=== PATIENT | female | born 1975 | race Caucasian/White ===

== ENCOUNTER → 2020-04-06 | Outpatient (CLI) | payer BC ==
--- NOTE | 2020-04-06 12:39 | Diagnostic Imaging Report ---
INDICATION: CHEST PAIN/COUGH COMPARISON: None. FINDINGS: Frontal and lateral views of the chest demonstrate normal heart size and pulmonary vascularity. The lungs are clear. There are no signs of infiltrate, pleural effusions or pneumothoraces. The visualized osseous structures show no acute abnormalities. IMPRESSION: 1. No acute process. No signs of infiltrates, effusions or pneumothoraces. Dictated by: Dictated on workstation # [id number]
== END ==
LOC: RAD 12:02
PROVIDERS: ATTEND Surgery
DX: R07.9 Chest pain, unspecified (principal); R05 Cough
CPT/HCPCS: 71046

== ENCOUNTER 2020-05-05 05:31 | Outpatient (RCR) | payer BC ==
[~2020-05-05] VITALS: Ht 165.1 cm; Wt 84.1 kg
[~2020-05-05 05:31] MED LIST: ARIP2TAB3 PO; ARIP5TAB12 PO; DESV50TA PO; LEVO50CA4 PO; LORA-405 SL; METO-351 PO
== END 2020-05-05 10:58 | disposition home or self-care (01) ==
LOC: PREOP 05:31
PROVIDERS: ATTEND Surgery
DX: Z01.812 Encounter for preprocedural laboratory examination (principal); K95.09 Other complications of gastric band procedure; Z20.822 Contact with and (suspected) exposure to COVID-19
CPT/HCPCS: 87635

== ENCOUNTER 2020-05-07 09:28 | Day surgery (SDC) | payer SELFPAY ==
--- NOTE | 2020-05-06 12:40 | HISTORY AND PHYSICAL ---
DATE OF SERVICE: PROCEDURE DATE: 05/07/2020. ATTENDING PRIMARY CARE PHYSICIAN: Dr. Cade Knox. HISTORY OF PRESENT ILLNESS: This is a 45-year-old female with a history of morbid obesity and medical comorbidities related to obesity including edema, depression, degenerative joint disease, obstructive sleep apnea and hypertension. She is status post laparoscopic adjustable gastric band with an APS band on 06/28/2018. She was seen in the office on 04/06/2020 and had reported that she had done well with weight loss; however, struggled with some issues with the gastric band. She had reported at that time for the last 8 to 10 months that she had been having intermittent issues with nausea and vomiting as well as choking and gagging and left-sided abdominal pain. She reported intermittent episodes of reflux. She reports that her symptoms have progressively become worse. She reports that she has been living in [place] and did see a bariatric surgeon and underwent an upper GI endoscopy and at that time, it was believed that she may have had a lap band slippage. She did have all the fluid removed and then proceeded with adjustments again; however, continued to have issues. She reports that she usually only eats 1 meal a day and that she is following a high-protein, low carbohydrate diet. She reports that she is exercising by doing cardiovascular activity as well as weight training 3 days a week. She denied any issues with any diarrhea or constipation. She also reports that she was having issues at night where she would awaken with gagging and choking. She reports that due to her issues and that she has struggled at times to get enough food and liquids down that she would like to proceed with removal of the lap band if possible. She did have a chest x-ray at that time and it did appear that there was increased tilting of the band consistent with a band slippage. PAST MEDICAL HISTORY: Depression, bipolar disorder, degenerative joint disease, obstructive sleep apnea, hypothyroidism, hypertension, anxiety, pulmonary embolism in 2018, edema. PAST SURGICAL HISTORY: L5-S1 ablation in 2016 and 2017, left index finger tendon repair in 2009, left knee arthroscopy in 10/2017, laparoscopic adjustable gastric band in 06/2018, partial hysterectomy in 01/2020. ALLERGIES: PENICILLIN, DERMABOND, ADHESIVES. MEDICATIONS: Levothyroxine 50 mcg daily, aripiprazole 5 mg daily, lorazepam 1 mg daily p.r.n., metoprolol 25 mg daily, desvenlafaxine 50 mg daily at noon, Abilify 2 mg daily. VITAL SIGNS: Blood pressure 132/78. Current weight 185.9 pounds and 5 feet 5 inches with a body mass index of 30.9. SOCIAL HISTORY: Previous for smoke 1 pack per day for 15 years, quit in 2017. Rare for alcohol. FAMILY HISTORY: Father, hypertension. Mother, hypertension. Maternal grandfather, myocardial infarction. Maternal grandmother, stroke. REVIEW OF SYSTEMS: This is a well-nourished female in no acute distress. She is not experiencing any shortness of breath or difficulty breathing. No chest pain, palpitations or diaphoresis. She does report episodes of nausea and vomiting, which are frequent, especially after eating. She also reports left upper quadrant abdominal pain as well as reflux. She denies any diarrhea or constipation. No red blood per rectum. No dark tarry stools. No fever or chills. No recent inadvertent weight loss. All other review of systems negative. PHYSICAL EXAMINATION: CHEST: Clear. Good breath sounds bilaterally. HEART: Regular, no murmurs. EXTREMITIES: No lower extremity edema. Negative Homans sign. HEENT: No scleral icterus. NECK: No cervical lymphadenopathy. ABDOMEN: Soft, nontender, nondistended. SKIN: Warm, dry and pink. NEUROLOGIC: Awake, alert and oriented x3. ASSESSMENT AND PLAN: A 45-year-old female with a history of morbid obesity, who currently has left upper quadrant abdominal pain as well as reflux with nausea and vomiting, especially after eating. She did undergo a chest x-ray, which did appear to show a lap band slippage. Because of these findings, we will recommend proceeding with removal of the adjustable gastric band. The risks and benefits of the procedure as well as the procedure and home care instructions were explained to the patient. The patient verbalized understanding of instructions and agrees to proceed as planned. At this time, we will schedule her for laparoscopic removal of the adjustable gastric band and subcutaneous port. Job ID: [id number] DocumentID: [id number] Dictated Date: 05/06/2020 09:10:00 Cloth Winder Date: 05/06/2020 09:45:43 Dictated By: DANIELLA CORONEL APRN
[2020-05-07] VITALS (10 sets, daily range): BP systolic 110–136; BP diastolic 55–75
[~2020-05-07] VITALS: Ht 165 cm; Wt 84.1 kg
--- NOTE | 2020-05-07 09:41 | Progress Note-Pre Operative ---
Pre-Operative Progress Note H&P Reviewed The H&P was reviewed, patient examined and no changes noted. Date Seen by Provider: May 07, 2020 Time Seen by Provider: 09:40 Date H&P Reviewed: May 07, 2020 Time H&P Reviewed: 09:35 Pre-Operative Diagnosis: Lap Band slippage, Reflux, N/V, LUQ abdominal pain DANIELLA CORONEL APRN May 07, 2020 09:41
[2020-05-07] MEDS ORDERED: HYDR-3817 PO (09:43)
--- NOTE | 2020-05-07 09:44 | Discharge Inst-Surgical ---
D/C Lap Instructions-KIDO Reconcile Patient Problems Problems Reviewed?: Yes New, Converted, or Re-Newed RX: RX on Chart Follow Up Appt in 2 weeks Activity as tolerated No driving for 24 hours No driving while on pain medications Incentive Spirometry use every 2 hours while awake Regular Diet Symptoms to Report: Fever over 101 degree F, Nausea/Vomiting Infection Signs and Symptoms to report: Increased redness, Foul odor of wound, Increased drainage Bathing instructions: May shower Operative Area Clean/Dry; Keep incision clean/dry If any problems/questions: Contact your physician or go to Emergency Room DANIELLA CORONEL APRN May 07, 2020 09:44
[2020-05-07] MEDS ORDERED: ONDANSETRON 4 MG/2 ML (SDV) Z0FRAN IVP PRN ×2 (09:45→12:45)
[2020-05-07] MEDS ORDERED: HYDROcodone/APAP 5 MG/325 MG (LORTAB) TAB PO ONE (09:45)
[2020-05-07] MEDS ORDERED: ACETAMINOPHEN 325 MG TABLET PO PRN (09:45)
[2020-05-07] MEDS ORDERED: morphine INJ 10 MG/ML 1ML (SYR OR VIAL) IVP PRN (09:45)
[2020-05-07] MEDS ORDERED: CLINDAMYCIN 600 MG/50 ML IVPB 50 ML IV ONE ×2 (10:03→13:15)
[2020-05-07] MEDS ORDERED: LIDOCAINE/EPI 1%-1:100,000 (XYLOCAINE) 50 ML ONE (10:31)
[2020-05-07] MEDS ORDERED: fentaNYL INJECTION 100 MCG/2 ML AMP ONE (11:22)
[2020-05-07] MEDS ORDERED: NEOSTIGMINE 3 MG/3 ML VIAL ONE (11:22)
[2020-05-07] MEDS ORDERED: ONDANSETRON 4 MG/2 ML (SDV) Z0FRAN ONE (11:22)
[2020-05-07] MEDS ORDERED: ROCURONIUM 10 MG/ML 5 ML SYRINGE IV ONE (11:22)
[2020-05-07] MEDS ORDERED: GLYCOPYRROLATE 0.2 MG/ML (ROBINUL) 2 ML VIAL ONE (11:22)
[2020-05-07] MEDS ORDERED: proPOfol 200 MG/20 ML (DIPRIVAN) VIAL IV ONE (11:22)
[2020-05-07] MEDS ORDERED: SEVOFLURANE (ULTANE) 15 ML INHAL SOLN ONE ×4 (11:22→14:09)
[2020-05-07] MEDS ORDERED: MIDAZOLAM 2 MG/2 ML (VERSED) VIAL ONE (11:22)
[2020-05-07] MEDS ORDERED: LIDOCAINE PF 2% 5 ML (XYLOCAINE) VIAL ONE (11:22)
[2020-05-07] MEDS ORDERED: morphine INJ 10 MG/ML 1ML (SYR OR VIAL) IVP ONE (12:45)
[2020-05-07] MEDS ORDERED: fentaNYL INJECTION 100 MCG/2 ML AMP IVP ONE (12:45)
[2020-05-07] MEDS ORDERED: MEPERIDINE (DEMEROL) INJ 50 MG/ML IVP ONE (12:45)
[2020-05-07] MEDS ORDERED: LACTATED RINGERS 1,000 ML IV PRN (13:15)
[2020-05-07 13:17] LABS: BASOPHILS % (AUTO) 1 % (0-10); EOSINOPHILS # (AUTO) 0.3 10^3/uL (0.0-0.3); EOSINOPHILS % (AUTO) 4 % (0-10); HEMATOCRIT 36 % (35-52); LYMPHOCYTES # (AUTO) 2.9 X 10^3 (1.0-4.0); LYMPHOCYTES % (AUTO) 39 % (12-44); MEAN CORPUSCULAR HEMOGLOBIN 31 pg (25-34); MEAN CORPUSCULAR HGB CONC 33 g/dL (32-36); MEAN CORPUSCULAR VOLUME 94 fL (80-99); MONOCYTES # (AUTO) 0.4 X 10^3 (0.0-1.0); MONOCYTES % (AUTO) 5 % (0-12); NEUTROPHILS # (AUTO) 3.7 X 10^3 (1.8-7.8); NEUTROPHILS % (AUTO) 51 % (42-75); PLATELET COUNT 332 10^3/uL (130-400); WHITE BLOOD COUNT 7.2 10^3/uL (4.3-11.0)
[2020-05-07] MEDS ORDERED: morphine INJ 10 MG/ML 1ML (SYR OR VIAL) ONE (13:52)
--- NOTE | 2020-05-07 14:10 | Progress Note-Post Operative ---
Post-Operative Progess Note Surgeon (s)/Heel Gummer (s) Surgeon ESTHER RIVAS MD Heel Gummer: chau diaz METER ENGINEER Pre-Operative Diagnosis nausea, abdominal pain, choking, coughing Post-Operative Diagnosis inferior band slippage Procedure & Operative Findings Date of Procedure 05/07/20 Procedure Performed/Findings diagnostic laparoscopy, removal gastric restrictive device and subcutaneous port. Anesthesia Type get Estimated Blood Loss Estimated blood loss (mL): minimal Specimens/Packing Specimens Removed ESTHER Mansfield MD May 07, 2020 14:10
--- NOTE | 2020-05-07 14:25 | Anesthesia-General Post-Op ---
General Patient Condition Mental Status/LOC: Same as Preop Cardiovascular: Satisfactory Nausea/Vomiting: Absent Respiratory: Satisfactory Pain: Controlled Complications: Absent Post Op Complications Complications None Follow Up Care/Instructions Patient Instructions None needed. Anesthesia/Patient Condition Patient Condition Patient is doing well, no complaints, stable vital signs, no apparent adverse anesthesia problems. No complications reported per nursing. BATSHEVA WRAY CRNA May 07, 2020 14:25
[2020-05-07] MEDS ORDERED: HYDROcodone/APAP 5 MG/325 MG (LORTAB) TAB ONE (15:52)
--- NOTE | 2020-05-07 18:57 | OPERATIVE REPORT ---
DATE OF SERVICE: 05/07/2020 PREOPERATIVE DIAGNOSES: Nausea, vomiting, reflux, inferior band slippage. POSTOPERATIVE DIAGNOSES: Nausea, vomiting, reflux, inferior band slippage. PROCEDURE: Diagnostic laparoscopy, removal of gastric restrictive device and subcutaneous port. SURGEON: Esther Rivas MD. VP PUBLIC RELATIONS: Kareem French APRN. ANESTHESIA: General endotracheal. ESTIMATED BLOOD LOSS: Minimal. FINDINGS: Inferior band slippage, no band erosion. DISPOSITION: The patient tolerated the procedure well. INDICATIONS: The patient is a 45-year-old female with history of morbid obesity and medical comorbidities including lower extremity edema, depression, degenerative joint disease, sleep apnea, and hypertension and status post laparoscopic adjustable gastric band with APS band on 06/28/2018. She was seen in the office and reported that she had done well with weight loss; however, has had persistent issues for the past 10 months with nausea, vomiting and reflux despite having multiple band adjustments. She has been living in [place] for the past few years and states that she was seeing a bariatric surgeon there, underwent an upper GI endoscopy and it appeared that she had had an inferior band slippage. She did have all the fluid removed from the band; however, continued to have issues. She also did have a chest x-ray, which did show the omega angle greater than 60 degrees likely consistent with an inferior band slippage. DESCRIPTION OF PROCEDURE: The patient was brought to the operating room, laid supine on the table. After adequate IV pain and sedative medications and general endotracheal intubation, the abdomen was prepped and draped in standard surgical fashion. A 0.5% Marcaine with epinephrine was used to anesthetize the overlying skin and in the left upper abdominal quadrant, a transverse skin incision made using a 15 blade. An 0 silk suture was applied to the medial aspect incision for retraction and a Veress needle inserted with a low opening pressure of 0 mmHg. The abdomen was insufflated to 15 mmHg pressure. The Veress needle removed and a 5 mm XL trocar placed followed by a 5 mm 45-degree angle laparoscope visualizing the peritoneal cavity. A four-quadrant abdominal exploration was performed. What was visualized of the liver, stomach, omentum appeared normal. Under direct visualization, we then proceeded to place a right midline 10 mm port after the skin and peritoneal lining were anesthetized using 0.5% Marcaine with epinephrine and a transverse skin incision made using 15 blade. In a similar manner, a right upper abdominal quadrant 5 mm port was placed. The left lobe of the liver was then retracted anteriorly and superiorly, and the band identified and there did appear to be an inferior slippage. There was some adhesion tissue around the buckle of the band, which were taken down using the hook and electrocautery and then the band was unclasped and the band tubing cut. The gastric restrictive device was then removed en bloc with minimal resistance and good hemostasis. The gastric restrictive device was then removed through the 10 mm port site. Near the 10 mm site was the subcutaneous port and the skin incision was extended laterally using a 15 blade and the subcutaneous tissue dissected using electrocautery. The port was then completely dissected out using blunt dissection as well as electrocautery and removed as well as the remainder of the band tubing. The 10 mm port site fascia and peritoneum were then closed under direct visualization using a Pastor-Roger device and 0 Vicryl suture. The abdomen was desufflated and remaining ports removed. All skin incisions were closed using 4-0 Monocryl running subcuticular sutures. Wounds were then cleaned and covered with Dermabond. The patient tolerated the procedure well. We will start IV and oral pain medication as well as a clear liquid diet. When she is tolerating clears, has good pain control with oral pain medications, ambulating well, we will discharge her home and she will be instructed to follow a phase 1 clear liquid diet for the next few days and then slowly advance as tolerated. Job ID: [id number] DocumentID: [id number] Dictated Date: 05/07/2020 14:21:53 Cream Maker Date: 05/07/2020 18:56:58 Dictated By: ESTHER RIVAS MD
== END 2020-05-07 16:15 | disposition home or self-care (01) ==
LOC: SDC 09:28
PROVIDERS: ATTEND Surgery
DX: K95.09 Other complications of gastric band procedure (principal); K21.00 Gastro-esophageal reflux disease with esophagitis, without bleeding; I10 Essential (primary) hypertension; E03.9 Hypothyroidism, unspecified; F31.9 Bipolar disorder, unspecified; F41.9 Anxiety disorder, unspecified; E66.01 Morbid (severe) obesity due to excess calories; Z68.30 Body mass index [BMI] 30.0-30.9, adult; Z88.0 Allergy status to penicillin; Z91.048 Other nonmedicinal substance allergy status; Z79.890 Hormone replacement therapy; Z79.899 Other long term (current) drug therapy; Z87.891 Personal history of nicotine dependence; Z86.711 Personal history of pulmonary embolism; Z90.711 Acquired absence of uterus with remaining cervical stump; Z98.890 Other specified postprocedural states; Z82.3 Family history of stroke
CPT/HCPCS: 36415; 85025; 87081; 88300